=== PATIENT | male | born 1990 | race Hispanic/Latino ===

== ENCOUNTER 2019-10-26 11:30 | Emergency (ER) | payer BC, SELFPAY ==
--- NOTE | 2019-10-26 13:31 | RAD ---
EXAM: 3 views of the right hand COMPARISON: None HISTORY: Hand pain FINDINGS: 3 views of the hand shows no evidence of acute fracture or dislocation. A plate and screws is seen in the small finger metacarpal. No perihardware lucency is seen. No degenerative changes are seen. Mild diffuse soft tissue swelling is present. IMPRESSION: Unremarkable exam.
== END 2019-10-26 14:07 | disposition home or self-care (01) ==
LOC: ERS 11:30
DX: S60.221A Contusion of right hand, initial encounter (principal); Z71.6 Tobacco abuse counseling; F41.9 Anxiety disorder, unspecified; F32.9 Major depressive disorder, single episode, unspecified; F17.210 Nicotine dependence, cigarettes, uncomplicated; W22.8XXA Striking against or struck by other objects, initial encounter
CPT/HCPCS: 99406